=== PATIENT | female | born 1950 | race Caucasian/White ===

== ENCOUNTER → 2024-07-22 16:14 | Outpatient (REF) | payer MEDICARE, OTHER, SELFPAY | LOC: HWWDC 16:14 | PROVIDERS: ATTENDING PHYSICIAN Nurse Practitioner Family | DX: Z12.31 Encounter for screening mammogram for malignant neoplasm of breast (principal) | CPT/HCPCS: 77063; 77067 ==

== ENCOUNTER 2025-05-23 16:15 | Inpatient (IN) | payer MEDICARE, OTHER, SELFPAY ==
[2025-05-23 09:30] VITALS: BP 167/92
[2025-05-23 10:34] VITALS: BP 153/86
[2025-05-23 10:36] VITALS: BMI 29.5
[2025-05-23 10:53] LABS: INR 3.24; PT 32.9 Sec (11.4-14.6)
[2025-05-23 10:54] LABS: APTT 35.5 Sec (23.4-35.0)
[2025-05-23 11:00] VITALS: BP 147/76
[2025-05-23 11:04] LABS: ALT (SGPT) 14 U/L (0-35); AST (SGOT) 26 U/L (14-36); Albumin 4.4 g/dl (3.5-5.0); Alkaline Phosphatase 55 U/L (38-126); Blood Urea Nitrogen 19 mg/dl (7-17); Calcium 9.8 mg/dl (8.4-10.2); Carbon Dioxide 26 mmol/L (22-30); Chloride 107 mmol/L (98-107); Estimated Creatinine Clearance 70 ml/min; Glucose 147 mg/dl (70-99); Potassium 4.6 mmol/L (3.5-5.1); Sodium 140 mmol/L (135-145); Total Protein 6.7 g/dl (6.3-8.2); eGFR > 60.00
[2025-05-23 11:28] LABS: Hematocrit 41.7 % (37.0-47.0); Hemoglobin 14.1 g/dL (12.0-16.0); Mean Corp Hgb Conc. 33.8 g/dL (33.0-37.0); Mean Corpuscular Volume 89.5 fL (81.0-99.0); Platelet Count 190 10^3/uL (130-400); Red Cell Dist. Width 13.3 % (11.5-14.5)
--- NOTE | 2025-05-23 11:40 | ED.GENMED ---
History of Present Illness
<Angela Moreno PA-C - Last Filed: 05/24/25 07:04>
General
Chief Complaint: Rectal Bleeding
Source: patient
Exam Limitations: none
Time Seen by Provider: 05/23/25 10:40
Nursing documentation reviewed up to this point in time: agreed with
History of Present Illness
History of Present Illness:
SEE mdm
Past History
<Angela Moreno PA-C - Last Filed: 05/24/25 07:04>
Past History
ED Past Medical History: Cancer and CVA
ED Past Surgical History: Appendectomy, Cholecystectomy and Gynecological
Social History
Tobacco: Former smoker
Alcohol: Occasional
Drug: None
Living: with family
Family History
Family History: Unable to obtain
Phy Exam
<Angela Moreno PA-C - Last Filed: 05/24/25 07:04>
Physical Exam
Physical Exam:
SEE mdm
Course
<Angela Moreno PA-C - Last Filed: 05/24/25 07:04>
Orders/Labs/Results
Orders:
Orders
05/23/25 10:26
Cardiac Monitoring- Treatment ONCE
IV Insert/Care/Rem.- Treatment PRN
O2 Therapy [RESP] Urgent
Titrate/Wean O2 to maintain O2 sat greater than (%): 93
Special Instructions: MAINTAIN CONTINOUS O2 SATS > OR = 93%
Pulse Ox/spot Check [RESP] Urgent
Quantity: 1
Special Instructions: ON ROOM AIR
05/23/25 10:34
Type+Screen Urgent
Complete Blood Count/With Diff Urgent
05/23/25 10:35
Comprehensive Metabolic Panel Urgent
PTT Urgent
Prothrombin Time Urgent
05/23/25 11:35
CT Abd/pel W Iv And Oral Contr Urgent
Comment:
Reason For Exam: LLq pain, rectal bleed; h/o colostomy/reversal
Iohexol [Omnipaque] See Protocol PO NOW STA
05/23/25 11:38
0.9% Sodium Chloride 1000 ml [Nss] 1,000 ml IV BOLUS
05/23/25 12:09
Lactic Acid Urgent
05/23/25 Dinner
Clear Liquid
At Your Request: Full Participation
05/23/25 15:39
GASTROINTESTINAL CONSULT Routine
Consulting Provider: Dawit Eugene
Was physician already notified: Yes
Reason for consult: lower gi bleed
05/23/25 15:40
Admit/Transfer Patient As Directed
Co-Sign Provider:
Level of Care: Inpatient admission
Assign to:: Medical/Surgical
Physician / Group: archie martin
Diagnosis: gi bleed on coumadin, hx antiphospholipid syndrome
Reason for Hospitalization: gi bleed on coumadin, hx antiphospholipid syndrome
Expected length of stay greater than two midnights?: Yes
ELOS- Estimated Length of Stay in days: 4
I certify the patient meets the requirements for IP care: Yes
Code Status As Directed
Resuscitation Status: Do not resuscitate
Reached after discussion with pt or family/Healthcare POA: Yes
Decision communicated with: per pt
DNR Bracelet Application ONCE
05/23/25 15:42
PRN Pain Medication Management As Directed
May give lesser potent ordered pain med per pt: Yes
preference::
Protocol:: Medication orders for pain may be administered in a
manner that supports deferring to patient preference
when the pt is:
- Requesting an ordered lesser potent pain medication.
Least to most potent pain medications are defined
as: acetaminophen < NSAID < tramadol < opioids
(morphine, oxycodone, hydromorphone).
- Requesting a lesser dose of the same medication IF
ORDERED.
- Requesting a less intrusive route of administration
if both routes are prescribed by the provider (PO <
IV).
05/23/25 17:03
Activity As Directed
Activity Level: As Tolerated
Vital Signs As Directed
Frequency: Per unit guidelines
DX Deep Vein Thrombosis Video Routine
05/23/25 18:00
Loratadine [Claritin] 10 mg PO DAILY PRN allergies
05/23/25 22:00
Gabapentin [Neurontin] 300 mg PO HS
Rosuvastatin Calcium [Crestor] 5 mg PO DAILY@2200
05/24/25 06:00
Complete Blood Count/With Diff IN AM
Comprehensive Metabolic Panel IN AM
INR [Prothrombin Time] IN AM
05/24/25 08:00
Calcium Carbonate/Vitamin D3 [Oscal 500 + D] 500 mg PO DAILY
05/25/25 06:00
Complete Blood Count/With Diff IN AM
Comprehensive Metabolic Panel IN AM
05/26/25 06:00
Complete Blood Count/With Diff IN AM
Comprehensive Metabolic Panel IN AM
Abnormal Lab Results
05/23/25 05/23/25
10:34 10:35
WBC 20.6 H 10^3/uL
(4.8-10.8)
MPV 10.6 H fL
(7.4-10.4)
Absolute Lymphs (auto) 13.4 H 10^3/uL
(1.2-3.4)
Absolute Monos (auto) 0.7 H 10^3/uL
(0.1-0.6)
Neutrophils % 28.5 L %
(42.2-75.2)
Lymphocytes % 64.8 H %
(20.5-51.1)
PT 32.9 H Sec
(11.4-14.6)
APTT 35.5 H Sec
(23.4-35.0)
BUN 19 H mg/dl
(7-17)
Glucose 147 H mg/dl
(70-99)
05/23/25 10:34
05/23/25 10:35
Vital Signs
Initial and Last Documented VS:
Initial Vital Signs
Temp Pulse Resp BP Pulse Ox
36.8 C 78 16 167/92 95
05/23/25 09:30 05/23/25 09:30 05/23/25 09:30 05/23/25 09:30 05/23/25 09:30
Last Documented Vital Signs
Temp Pulse Resp BP Pulse Ox
36.5 C 66 18 138/68 98
05/23/25 23:00 05/23/25 23:00 05/23/25 23:00 05/23/25 23:00 05/23/25 23:00
<Nilsa Garcia, DO - Last Filed: 05/23/25 15:08>
Orders/Labs/Results
Orders:
Orders
05/23/25 10:26
Cardiac Monitoring- Treatment ONCE
IV Insert/Care/Rem.- Treatment PRN
O2 Therapy [RESP] Urgent
Titrate/Wean O2 to maintain O2 sat greater than (%): 93
Special Instructions: MAINTAIN CONTINOUS O2 SATS > OR = 93%
Pulse Ox/spot Check [RESP] Urgent
Quantity: 1
Special Instructions: ON ROOM AIR
05/23/25 10:34
Type+Screen Urgent
Complete Blood Count/With Diff Urgent
05/23/25 10:35
Comprehensive Metabolic Panel Urgent
PTT Urgent
Prothrombin Time Urgent
05/23/25 11:35
CT Abd/pel W Iv And Oral Contr Urgent
Comment:
Reason For Exam: LLq pain, rectal bleed; h/o colostomy/reversal
Iohexol [Omnipaque] See Protocol PO NOW STA
05/23/25 11:38
0.9% Sodium Chloride 1000 ml [Nss] 1,000 ml IV BOLUS
05/23/25 12:09
Lactic Acid Urgent
05/23/25 Dinner
Clear Liquid
At Your Request: Full Participation
05/23/25 15:39
GASTROINTESTINAL CONSULT Routine
Consulting Provider: Dawit Eugene
Was physician already notified: Yes
Reason for consult: lower gi bleed
05/23/25 15:40
Admit/Transfer Patient As Directed
Co-Sign Provider:
Level of Care: Inpatient admission
Assign to:: Medical/Surgical
Physician / Group: archie martin
Diagnosis: gi bleed on coumadin, hx antiphospholipid syndrome
Reason for Hospitalization: gi bleed on coumadin, hx antiphospholipid syndrome
Expected length of stay greater than two midnights?: Yes
ELOS- Estimated Length of Stay in days: 4
I certify the patient meets the requirements for IP care: Yes
Code Status As Directed
Resuscitation Status: Do not resuscitate
Reached after discussion with pt or family/Healthcare POA: Yes
Decision communicated with: per pt
DNR Bracelet Application ONCE
05/23/25 15:42
PRN Pain Medication Management As Directed
May give lesser potent ordered pain med per pt: Yes
preference::
Protocol:: Medication orders for pain may be administered in a
manner that supports deferring to patient preference
when the pt is:
- Requesting an ordered lesser potent pain medication.
Least to most potent pain medications are defined
as: acetaminophen < NSAID < tramadol < opioids
(morphine, oxycodone, hydromorphone).
- Requesting a lesser dose of the same medication IF
ORDERED.
- Requesting a less intrusive route of administration
if both routes are prescribed by the provider (PO <
IV).
05/23/25 17:03
Activity As Directed
Activity Level: As Tolerated
Vital Signs As Directed
Frequency: Per unit guidelines
DX Deep Vein Thrombosis Video Routine
05/23/25 18:00
Loratadine [Claritin] 10 mg PO DAILY PRN allergies
05/23/25 22:00
Gabapentin [Neurontin] 300 mg PO HS
Rosuvastatin Calcium [Crestor] 5 mg PO DAILY@2200
05/24/25 06:00
Complete Blood Count/With Diff IN AM
Comprehensive Metabolic Panel IN AM
INR [Prothrombin Time] IN AM
05/24/25 08:00
Calcium Carbonate/Vitamin D3 [Oscal 500 + D] 500 mg PO DAILY
05/25/25 06:00
Complete Blood Count/With Diff IN AM
Comprehensive Metabolic Panel IN AM
05/26/25 06:00
Complete Blood Count/With Diff IN AM
Comprehensive Metabolic Panel IN AM
Abnormal Lab Results
05/23/25 05/23/25
10:34 10:35
WBC 20.6 H 10^3/uL
(4.8-10.8)
MPV 10.6 H fL
(7.4-10.4)
Absolute Lymphs (auto) 13.4 H 10^3/uL
(1.2-3.4)
Absolute Monos (auto) 0.7 H 10^3/uL
(0.1-0.6)
Neutrophils % 28.5 L %
(42.2-75.2)
Lymphocytes % 64.8 H %
(20.5-51.1)
PT 32.9 H Sec
(11.4-14.6)
APTT 35.5 H Sec
(23.4-35.0)
BUN 19 H mg/dl
(7-17)
Glucose 147 H mg/dl
(70-99)
05/23/25 10:34
05/23/25 10:35
Vital Signs
Initial and Last Documented VS:
Initial Vital Signs
Temp Pulse Resp BP Pulse Ox
36.8 C 78 16 167/92 95
05/23/25 09:30 05/23/25 09:30 05/23/25 09:30 05/23/25 09:30 05/23/25 09:30
Last Documented Vital Signs
Temp Pulse Resp BP Pulse Ox
36.5 C 66 18 138/68 98
05/23/25 23:00 05/23/25 23:00 05/23/25 23:00 05/23/25 23:00 05/23/25 23:00
Deirdrelt;Angela Moreno PA-C - Last Filed: 05/24/25 07:04>
MDM/Problems Addressed
Differential Diagnosis Includes:
see MDM
MDM/Problems Addressed:
Note:
CHIEF COMPLAINT(S)
Bloody stool since approximately 8:30 AM.
HISTORY OF PRESENT ILLNESS
The patient is a [id number] female who presented with an episode of significant bloody stool that began around 8:30 AM today. The patient reports it was a sudden and painless occurrence, describing the volume as sufficient to turn the toilet bowl
entirely red. She has experienced four similar episodes, including one since arriving at this facility about 2 tsp of strictly blood (red). The patient has a history of antiphospholipid syndrome, managed with warfarin, with a recent International
Normalized Ratio (INR) of 3.4 as checked 3 days ago. She reports increased fatigue over the past week but denies experiencing lightheadedness. 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
artery, which led to her current anticoagulation regimen with warfarin. 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
before the COVID pandemic. There is a history of diverticulosis, but she denies prior episodes of diverticulitis. She does not report abdominal pain with the current episode.
PAST MEDICAL AND SURGICAL HISTORY
- Antiphospholipid syndrome
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
- History of a ruptured fistula between the uterus and fallopian tube leading to partial colectomy and temporary colostomy, later reversed
CHRONIC MEDICAL CONDITIONS SIGNIFICANTLY AFFECTING CARE
- Antiphospholipid syndrome
- Long-term anticoagulation therapy with warfarin
SOCIAL DETERMINANTS AFFECTING HEALTH
None mentioned related to healthcare access or other issues.
ALLERGIES
Allergy to intravenous contrast with colon surgery
MEDICATIONS
- Warfarin: 5.5 mg two days a week (Sunday and Sunday)
- Additionally, 6 mg on other days
REVIEW OF SYSTEMS
- Gastrointestinal: Sudden onset of significant bloody stool; denies abdominal pain.
- General: Increased fatigue over the past week.
- Neurological: No lightheadedness.
PHYSICAL EXAM
GENERAL: Alert , in no apparent distress
EYE: pupils equal and reactive
NECK: Supple
ENT: o/p clr, mmm.
CARDIAC: Regular rate and rhythm .
LUNGS: Clear breath sounds bilaterally, no acute respiratory distress, no wheezes/rales/rhonchi
ABDOMEN: Soft, mild left lower quadrant tenderness , no r/g, no cvat, normal bowel sounds
rectal: some skin tags ? warts
no oozing
NEUROLOGICAL: Alert and oriented, no focal neuro deficits
SKIN: Warm and dry, skin intact.
PSYCH: Normal and appropriate interaction.
Nursing notes reviewed and vital signs reviewed.
PLAN
1. Discussed the plan to perform a computed tomography (CT) scan of the abdomen and pelvis with oral contrast to identify the source of bleeding, as the bleeding episodes do not meet criteria for a bleeding scan.
2. Hospitalization expected due to bleeding and anticoagulation therapy with warfarin.
DIFFERENTIAL DIAGNOSIS
The Differential Diagnosis includes, in no particular order and is not limited to:
1. Gastrointestinal bleeding due to diverticulosis
2. Anticoagulation-related bleeding
3. Hemorrhoids
4. Inflammatory bowel disease
5. Colonic angiodysplasia
6. Colorectal carcinoma
7. Mesenteric ischemia
8. Arteriovenous malformation
9. Infectious colitis
10. Ischemic colitis
05/23/25 - 14:53
- Awaiting interpretation of the CT scan; hemoglobin is stable at 14, and lactic acid levels are normal.
- The patients white blood cell count danni to 193, with a noted increase from 175 and 180 in previous evaluations.
- The patient has chronic lymphocytic leukemia (CLL under monitoring since 2013, with periodic DEC prescriptions, and a follow-up scheduled with the oncologist in February. - SHE DOES NOT WANT THIS TO BE MADE KNOWN TO HER FAMILY, THAT THE CLL MAY BE
RETURING
<Angela Moreno PA-C - Last Filed: 05/24/25 07:04>
*Pulse Oximetry
SaO2: 94
Oxygen Mode of Delivery: Room air
Patient hypoxic: no (98)
*Critical Care Note
Total Time (30-74mins, 75-104mins- exclusive of procedures): Not Applicable
ED Attending Note
<Angela Moreno PA-C - Last Filed: 05/24/25 07:04>
-
Portions of this chart may have been created with voice recognition software.� Occasional wrong word or��sound alike� substitutions may have occurred due to the inherent limitations of voice recognition software.
<Nilsa Garcia DO - Last Filed: 05/23/25 15:08>
ED Attending Note
Patient seen and examined by attending physician: Yes
I performed the substantive portion of visit, reviewed & personally made and approve the management plan that is documented in note by myself or JANE.: Yes
I performed a history and physical exam of patient and discussed management with resident, I reviewed resident's note and agree with documented findings and plan of care.: Yes
ED Attending Note:
75-year-old female with a history of antiphospholipid syndrome on Coumadin, history of CLL presenting to the emergency department for concern of GI bleed. Patient reports about 4 episodes of abdominal to arrival, with additional episode here.
Denies any associated abdominal pain. Denies ever having issues with this while on Coumadin. Denies weakness or lightheadedness. Denies chest pain or difficulty breathing. Denies additional acute medical complaints.
Vital signs are stable. Patient initially seen and evaluated by physician library serials assistant with appropriate workup including laboratory analysis. Hemoglobin stable. On my assessment, no tenderness to abdomen, however given multiple episodes (made to
proceed with CT abdominal imaging. Pending CT imaging. No present hemodynamic instability, however due to coagulation status and persistent episodes, feel patient warrants admission for hemodynamic monitoring and hemoglobin trending. Of note,
patient's white blood cell count is elevated, which she notes has been uptrending, thought to be secondary to her CLL returning.
Discharge Plan
Departure
Patient Disposition: Admit
Date of Disposition: 05/23/25
Time of Disposition: 14:53
Admit to: Med/Surg
Presentation/result/management discussed w/ accepting MD/DO: Hospitalist
Condition: Fair
Covid-19: Not Applicable
Discharge Problem:
GI bleed, Anticoagulated
Interventions
Interventions:
*Risk Screen - Suicide Last Done: 05/23/25 09:30
*General Assessment Last Done: 05/23/25 10:37
*Neglect/Abuse Screening Last Done: 05/23/25 09:30
*ED COVID-19 Vaccine History Last Done: 05/23/25 10:38
*Nursing Disposition Last Done: 05/23/25 17:15
AZ-Rsajqy-Hfxccbraii Assessment Last Done: 05/23/25 10:39
ED- Cardiac Assessment Last Done: 05/23/25 10:39
ED- Pulmonary Assessment Last Done: 05/23/25 10:39
Discharge Date and Time
Discharge Date/Time: 05/23/25 17:15
[2025-05-23 12:03] LABS: Nucleated Red Blood Cells % 0 %
[2025-05-23] MEDS: OMNIPAQUE 50 ML PO (12:03)
[2025-05-23] MEDS: NSS 1000 IV (12:05)
[2025-05-23 13:01] VITALS: BP 168/83
--- NOTE | 2025-05-23 15:05 | HPS.HSE ---
Addendum entered and electronically signed by Del Kemp MD 05/23/25 16:47:
This is an addendum to H&P written by Zari Villaseñor on 05/23/2025. �Patient seen and examined independently with [employer]/FIRST OFFICER.
75-year-old female past medical history of antiphospholipid syndrome on Coumadin, CLL status post chemotherapy, diverticulitis complicated by fistula to ovary/uterus status post partial colectomy/colostomy, diabetes, Group B strep sepsis, presenting
with dark maroon clots with loose bowel movement. �No abdominal pain. �No fever or vomiting.
Vital signs unremarkable.
Labs show leukocytosis of 20. �PT of 32, PTT of 35. �INR 3.24.
CT abdomen pelvis pending.
Patient would likely lower GI bleeding. �Hold Coumadin. �Clear liquid diet. �GI consulted. �Her INR goal is between 2.5-3.5 normally.
Original Note:
Family Physician
-
Family Physician: Ksenia Campo MD
Chief Complaint
-
Blood in toilet bowl x 4 today
History of Present Illness
75-year-old female complaining of bloody stool began 830 this a.m. that was sudden but painless. She reports the entire toilet bowl turned dark red. She is on warfarin due to antiphospholipid syndrome with current INR 3.24
She reports approximately 1 tablespoon of dark red stool with brown formed stool while in the ER. The patient denies abdominal pain, cramping, nausea, vomiting, diarrhea, chest pain, palpitations, cough, shortness of breath, fever, chills. She
reports prior colonoscopy/endoscopy greater than [address] Art Cross at outpatient office in [place]
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
status post chemotherapy in past, former smoker
Medical History
Past Medical History
Past Medical History: Reports Other
Additional Past Medical History:
antiphospholipid syndrome
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
ruptured fistula between uterus/fallopian tube leading a partial colectomy and temporary colostomy later reversed
Group B/sepsis 2019 after colostomy
diverticulosis
DM 2
CLL Dx 2013 status post chemotherapy 2018
former smoker 30 years 1 pack a day quit 2013
Past Surgical History: Reports Other
Additional Past Surgical History:
ruptured fistula between uterus/fallopian tube leading a partial colectomy and temporary colostomy later reversed
Group B/sepsis 2019 after colostomy
Tonsillectomy
Hysterectomy
Ectopic with removal of right fallopian tube
Left knee surgery
Appendectomy right subcu port 01/14 removed 2022
Social History
Tobacco: Former Smoker (30-year 1 pack a day quit 2013)
Alcohol: Occasional
Living: With Family
Employment: Retired (Nurse)
Family History
Family History: Other (No family history of colon cancer)
Allergies / Home Medications
Allergies reflects when Allergies were last updated in [employer].
Home Medications with original date entered in [employer]
Allergy/Medication List:
Allergies
Allergy/AdvReac Type Severity Reaction Status Date / Time
tetracycline Allergy Unknown Verified 09/09/23 20:20
Home Medications
vitamin B complex 1 tab PO DAILY 02/26/23
calcium 600 mg (as carbonate)-vitamin D3 10 mcg (400 unit) tablet (Calcium 600 + D(3)) 1 tab PO DAILY 05/23/25
ferrous sulfate 325 mg (65 mg iron) tablet 325 mg PO DAILY 05/23/25
fluorouracil 5 % topical cream 1 applic topical DAILY PRN skin lesions 05/23/25
gabapentin 100 mg tablet 300 mg PO HS 05/23/25
loratadine 10 mg tablet 10 mg PO DAILY PRN allergies 05/23/25
metformin 500 mg tablet 500 mg PO BID 05/23/25
rosuvastatin 5 mg tablet 5 mg PO DAILY 05/23/25
warfarin 1 mg tablet 5.5 mg PO TUSA 05/23/25
warfarin 1 mg tablet 6 mg PO WE05/23/25
Review of Systems
-
History Source: Patient
A 12 point ROS was completed and negative except as noted: Yes
Constitutional: Denies Fever or Chills
EENT: Denies Sore Throat or Runny Nose
Respiratory: Denies Cough or Trouble Breathing
Cardiac: Denies Chest Pain, Diaphoresis, Palpitations or Syncope
Abdomen/GI: Reports Bloody Stools (Dark red 1 tablespoon x 5 episodes); Denies Abdominal Pain, Nausea, Vomiting, Diarrhea or Constipated
: Denies Dysuria or Frequency
Musculoskeletal: Denies Joint Pain or Edema
Skin: Denies Itching or Rash
Neurological: Denies Dizzy or Headache
Endocrine: Reports No Symptoms
Hematologic/Lymphatic: Reports No Symptoms
Psych: Reports Calm
Physical Exam
Vital Signs
Vital Signs
Temp Pulse Resp BP Pulse Ox
98 F 76 17 147/76 94
05/23/25 10:37 05/23/25 11:00 05/23/25 11:00 05/23/25 11:00 05/23/25 11:41
Physical Exam
General: No Pain, Fever or Chills
HEENT: NormoCephalic, Anicteric, Moist mucous membranes, PERRLA, Ambler Conjunctivae and No Ptosis
Respiratory: Clear; No Wheezes, Rales or Rhonchi
Cardiac: S1/S2 and Regular Rhythm; No Murmur, Rub, Gallop or Peripheral Edema
GI: Soft, Non Tender, Non Distended and Normal Bowel Sounds
Rectal: Deferred by Provider
Genito-urinary: Deferred by me
Musculoskeletal: No Clubbing, No Cyanosis and No Edema
Skin: Warm and Dry; No Rash
Neuro: AO x 3, No Motor Deficits, Cranial Nerves Intact and No Sensory Deficits; No Slurred Speech, Facial Droop, Tremors or Sedated
Psych: Calm
Laboratory Results
-
05/23/25 10:34
05/23/25 10:35
Laboratory Results
PT 32.9 Sec (11.4-14.6) H 05/23/25 10:35
INR 3.24 05/23/25 10:35
APTT 35.5 Sec (23.4-35.0) H 05/23/25 10:35
Lactic Acid 1.0 mmol/L (0.7-2.0) 05/23/25 12:09
Total Bilirubin 1.2 mg/dl (0.2-1.3) 05/23/25 10:35
AST 26 U/L (14-36) 05/23/25 10:35
ALT 14 U/L (0-35) 05/23/25 10:35
Alkaline Phosphatase 55 U/L (38-126) 05/23/25 10:35
Impression/Plan
-
Impression/plan:
Admit to MedSurg
#Lower GI bleed on Coumadin
#History diverticulosis
4 episodes painless bloody red bowel movement
Hgb 14.1 stable
-Consult GI
-HOLD coumadin
- clear liquid
- Follow CBC, BMP
#History antiphospholipid syndrome
-Hold current Coumadin due to GI bleed
Pt reports in between 2.5-3.5
#CLL Dx 2013 status post chemotherapy last chemo July 2018
WBC 20.6 states WBC was around 11 in February slowly going up but being monitored by oncology
Patient reports follows with [facility]
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
-Continue Crestor 5 mg at bedtime
# Hx ruptured fistula between uterus/fallopian tube leading a partial colectomy and temporary colostomy later reversed
#DM 2
BS 147
-Hold metformin 500 mg twice daily
#Neuropathy
Continue gabapentin 300 mg at bedtime
#Former smoker quit 2013
Former 31 pack a day
DVT prophylaxis
Hold current Coumadin due to elevated INR
SCDs
Full code
--- NOTE | 2025-05-23 16:58 | CM ---
CM reviewed chart and met with pt bedside in ED. Lives with her daughter in second story condo, full flight of steps to enter.
Independent in ADLs, personal care and ambulation at baseline, no assistive devices.
Hx VN in distant past, no hx SNF.
PCP: Ksenia Campo
Pharmacy: [facility] [address]
Anticipate discharge home, no needs. CM will continue to follow.
[2025-05-23 17:16] VITALS: BP 158/95; BMI 28.5
--- NOTE | 2025-05-23 17:35 | PTCARENOTE ---
Pt transferred from ED. Pt AAOX3, able to make needs known, VSS. Pt having blood BM. Pt oriented to unit, call grewal within reach. Will continue with current plan.
[2025-05-23] MEDS: CRESTOR 5 MG PO (21:22)
[2025-05-23] MEDS: NEURONTIN 300 MG PO (21:22)
[2025-05-23 22:05] LABS: Glucose - Point of Care 148 mg/dl (70-99)
[2025-05-23 23:00] VITALS: BP 138/68
--- NOTE | 2025-05-24 07:37 | CON.GI ---
Consultation
-
Date/Time Consultation Requested: 05/23/25 1pm
Date/Time Consultation Performed: 05/24/25 6:30 am
Requesting Provider: eliot
Performing Provider: micheline
Reason for Consultation: rectal bleeding
Medical History
Chief Complaint / HPI
Chief Complaint: rectal bleeding
History of Present Illness:
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
resulting in hysterectomy and partial colectomy with colostomy which was eventually reversed. She did have a preoperative colonoscopy at that point in 2017 which showed diverticular disease and polyps. She was told to repeat in 3 to 5 years but
has not had a repeat colonoscopy. She was admitted with rectal bleeding which she states happened several times and was not associated with dizziness or abdominal pain. She did have a leukocytosis as well and a CAT scan of the abdomen and pelvis
which showed some diverticular disease without diverticulitis. She did not have any other GI findings. Her INR is 3.24 on admission. She does not have any other GI history.
Past Medical History
Past Medical History: NIDDM and Other (Antiphospholipid syndrome, CLL, diverticulitis)
Past Surgical History: Bowel Resection and Gynecological (Partial colectomy with ostomy and reversal as well as total hysterectomy)
Social History
Tobacco: Former Smoker
Family History
Family History: Reviewed & Not Pertinent
Allergies / Home Medications
Allergy/AdvReac Type Severity Reaction Status Date / Time
tetracycline Allergy Unknown Verified 09/09/23 20:20
�Medication �Instructions �Recorded
vitamin B complex 1 tab PO DAILY 02/26/23
calcium 600 mg (as 1 tab PO DAILY 05/23/25
carbonate)-vitamin D3 10 mcg (400
unit) tablet (Calcium 600 + D(3))
ferrous sulfate 325 mg (65 mg 325 mg PO DAILY 05/23/25
iron) tablet
fluorouracil 5 % topical cream 1 applic topical DAILY PRN skin 05/23/25
lesions
gabapentin 100 mg tablet 300 mg PO HS 05/23/25
loratadine 10 mg tablet 10 mg PO DAILY PRN allergies 05/23/25
metformin 500 mg tablet 500 mg PO BID 05/23/25
rosuvastatin 5 mg tablet 5 mg PO DAILY 05/23/25
warfarin 1 mg tablet 5.5 mg PO TUSA 05/23/25
warfarin 1 mg tablet 6 mg PO SUMOWETHFR 05/23/25
Review of Systems
-
All other systems: A 12 pt ROS was Negative except as stated above in HPI
Vital Signs
Temp Pulse Resp BP Pulse Ox
97.7 F 66 18 138/68 98
05/23/25 23:00 05/23/25 23:00 05/23/25 23:00 05/23/25 23:00 05/23/25 23:00
Physical Exam
Exam
General: No Apparent Distress
HEENT: Anicteric
Cardiac: S1/S2
GI: Soft, Non Tender, Normal Bowel Sounds and Other (scar)
Skin: Warm
Neuro: Awake
Results
WBC 20.6 10^3/uL (4.8-10.8) H 05/23/25 10:34
Hgb 14.1 g/dL (12.0-16.0) 05/23/25 10:34
Hct 41.7 % (37.0-47.0) 05/23/25 10:34
MCV 89.5 fL (81.0-99.0) 05/23/25 10:34
Plt Count 190 10^3/uL (130-400) 05/23/25 10:34
Absolute Neuts (auto) 5.9 10^3/uL (1.4-6.5) 05/23/25 10:34
PT 32.9 Sec (11.4-14.6) H 05/23/25 10:35
INR 3.24 05/23/25 10:35
APTT 35.5 Sec (23.4-35.0) H 05/23/25 10:35
Sodium 140 mmol/L (135-145) 05/23/25 10:35
Potassium 4.6 mmol/L (3.5-5.1) 05/23/25 10:35
Chloride 107 mmol/L (98-107) 05/23/25 10:35
Carbon Dioxide 26 mmol/L (22-30) 05/23/25 10:35
BUN 19 mg/dl (7-17) H 05/23/25 10:35
Creatinine 0.7 mg/dL (0.6-1.0) 05/23/25 10:35
Calcium 9.8 mg/dl (8.4-10.2) 05/23/25 10:35
Total Bilirubin 1.2 mg/dl (0.2-1.3) 05/23/25 10:35
AST 26 U/L (14-36) 05/23/25 10:35
ALT 14 U/L (0-35) 05/23/25 10:35
Alkaline Phosphatase 55 U/L (38-126) 05/23/25 10:35
Assessment / Plan
-
This patient is a 75-year-old woman with a history of diverticulitis with fistula resulting in hysterectomy and partial colectomy with ostomy and reversal in 2019. She also has a history of colon polyps with her last colonoscopy being in 2017 as
well as a history of diabetes and antiphospholipid syndrome. She is on Coumadin and did come in with painless rectal bleeding which was mild. Her hemoglobin was stable on admission. For now would do the following:
1. Follow hemoglobin and INR
2. I did have a long discussion with Roxi who is a former ER nurse. She is well versed in her medical history and states that her INR will take some time to come down. She would prefer to have a colonoscopy which she knows she is overdue for as
an outpatient. She does work with Dr. Hester to bridge with Lovenox and has done this in the past. She does think that it will take more than a week for her INR to come down. I did offer to set her up for a colonoscopy in a week and a half as an
outpatient. She does prefer MiraLAX preparation. If she does remain stable in the hospital today and her hemoglobin is stable I do think this is a appropriate plan.
3. I did send my decorating supervisor her information and she will be scheduled. If however she does clinically change she can stay in the hospital and have it done there but she does not prefer.
4. She did have a leukocytosis on admission without any other symptoms or fever. This will be monitored. She does have a history of CLL.
Data Reviewed
-
Radiology: Report Reviewed by me
-
-
Thank you for consultation and allowing me to participate in the patient's care. Please call the [facility] physician during the after hours with any questions or concerns.
[2025-05-24] MEDS: OSCAL 500 + D 500 MG PO (07:38)
[2025-05-24 07:41] LABS: Glucose - Point of Care 148 mg/dl (70-99)
[2025-05-24 07:44] VITALS: BP 146/84
[2025-05-24 09:01] LABS: Hematocrit 40.8 % (37.0-47.0); Hemoglobin 13.9 g/dL (12.0-16.0); Mean Corp Hgb Conc. 34.1 g/dL (33.0-37.0); Mean Corpuscular Volume 91.3 fL (81.0-99.0); Platelet Count 235 10^3/uL (130-400); Red Cell Dist. Width 13.3 % (11.5-14.5)
--- NOTE | 2025-05-24 09:05 | W.DCSUMMARY ---
Discharge Summary
Discharge Data
Date of Admission: 05/23/25
Date of Discharge: 05/24/25
Total time spent discharging patient (in min): 50
-
Pending Results: Yes
Hospital Course
Initial presentation:
75-year-old female complaining of bloody stool began 830 am on 05/23/25, that was sudden but painless. She reports the entire toilet bowl turned dark red. She is on warfarin due to antiphospholipid syndrome with current INR 3.24 The patient denies
abdominal pain, cramping, nausea, vomiting, diarrhea, chest pain, palpitations, cough, shortness of breath, fever, chills. She reports prior colonoscopy/endoscopy greater than [address] Art Cross at outpatient office in [place]. At
day of discharge she continued to have some blood mixed in with stool, but insisted to go home.
Diagnosis prior to admit:
antiphospholipid syndrome
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
ruptured fistula between uterus/fallopian tube leading a partial colectomy and temporary colostomy later reversed
Group B/sepsis 2019 after colostomy
diverticulosis
DM 2
CLL Dx 2013 status post chemotherapy 2018
former smoker 30 years 1 pack a day quit 2013
Group B/sepsis 2019 after colostomy
Tonsillectomy
Hysterectomy
Ectopic with removal of right fallopian tube
Left knee surgery
Appendectomy right subcu port 01/14 removed 2022
Significant Social History
Retired (Nurse)
Hospital course by problem and Impression/plan:
1. Lower GI bleed on Coumadin complicated by History of diverticulosis
She had 4 episodes painless bloody red bowel movement but her Hgb at 14.1 has been stable. Consulted GI and the plan is for an outpatient colonoscopy when INR is lower. SHe will be bridged on lovenox (she has done this before. I had a detailed
discussion with the patient about the risks of going home today. 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 She has capacity to make this choice. Discharge was discussed with GI revenue cycle consultant.
The plan for discharge:
HOLD coumadin
Continue clear liquid (GI to advance after colonoscopy)
Follow outpatient CBC, BMP
Return to the ER immediately if bleeding does not stop or she has systemic symptoms like lightheadedness
GI to schedule outpatient colonoscopy
2. History antiphospholipid syndrome
Hold current Coumadin due to GI bleed (Pt reports in between 2.5-3.5)
Bridge with lovenox
3. CLL Dx 2013 status post chemotherapy last chemo July 2018
WBC 20.6 states WBC was around 11 in February slowly going up but being monitored by oncology
Patient reports follows with [facility]
4. 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
Continue Crestor 5 mg at bedtime
5. Hx ruptured fistula between uterus/fallopian tube leading a partial colectomy and temporary colostomy later reversed - stable
6. DM 2
Hold metformin 500 mg twice daily until diet returns to normal
7. Neuropathy - chronic
Continue gabapentin 300 mg at bedtime
DVT prophylaxis while in the hospital was SCDs given that the INR was elevated
She was Full code
Physical exam on day of discharge:
General: No Pain, Fever or Chills
HEENT: NormoCephalic, Anicteric, Moist mucous membranes, PERRLA, [place] Conjunctivae and No Ptosis
Respiratory: Clear; No Wheezes, Rales or Rhonchi
Cardiac: S1/S2 and Regular Rhythm; No Murmur, Rub, Gallop or Peripheral Edema
GI: Soft, Non Tender, Non Distended and Normal Bowel Sounds
Musculoskeletal: No Clubbing, No Cyanosis and No Edema
Skin: Warm and Dry; No Rash
Neuro: AO x 3,
Psych: Calm
Discharge Plan
-
Patient Disposition: Home (Routine Discharge)
Discharge Diagnosis/Procedures: rectal bleeding
Diet: Other diet
Additional Diets: Clear liquid
Activity: As tolerated
Driving Restrictions: As prior to admission
Bathing Restrictions: None
Referrals:
Ksenia Campo MD [Family Provider, Internal Medicine]
Prescriptions:
New
enoxaparin [Lovenox] 40 mg/0.4 mL syringe
40 mg SC Q12H Qty: 8 0RF
Rx Instructions:
inject twice daily as a coumadin bridge.
Continued
vitamin B complex Tablet
1 tab PO DAILY
gabapentin 100 mg Tablet
300 mg PO HS
fluorouracil 5 % cream
1 applic TOPICAL DAILY PRN (Reason: skin lesions)
ferrous sulfate 325 mg (65 mg iron) Tablet
325 mg PO DAILY
loratadine 10 mg Tablet
10 mg PO DAILY PRN (Reason: allergies)
rosuvastatin 5 mg tablet
5 mg PO DAILY
calcium carbonate-vitamin D3 [Calcium 600 + D(3)] 600 mg-10 mcg (400 unit) Tablet
1 tab PO DAILY
metformin 500 MG tablet
500 mg PO BID
Discontinued
warfarin 1 mg tablet
5.5 mg PO TUSA
warfarin 1 mg tablet
6 mg PO SUMOWETHFR
Discharge Orders:
Discharge Patient (As Directed); Ordered 05/24/25
Ordered By: Denilson Cloud
Discharge Date and Time
Print Language: SURINAMESE
[2025-05-24 09:29] LABS: ALT (SGPT) 13 U/L (0-35); AST (SGOT) 23 U/L (14-36); Albumin 4.4 g/dl (3.5-5.0); Alkaline Phosphatase 53 U/L (38-126); Blood Urea Nitrogen 14 mg/dl (7-17); Calcium 9.7 mg/dl (8.4-10.2); Carbon Dioxide 29 mmol/L (22-30); Chloride 102 mmol/L (98-107); Estimated Creatinine Clearance 68 ml/min; Glucose 151 mg/dl (70-99); Potassium 4.2 mmol/L (3.5-5.1); Sodium 137 mmol/L (135-145); Total Protein 6.7 g/dl (6.3-8.2); eGFR > 60.00
[2025-05-24 09:37] LABS: INR 2.26; PT 25.1 Sec (11.4-14.6)
[2025-05-24 10:33] LABS: Nucleated Red Blood Cells % 0 %
[2025-05-24 11:58] VITALS: BP 130/79
[2025-05-24 12:15] LABS: Glucose - Point of Care 135 mg/dl (70-99)
[2025-05-24 15:25] VITALS: BP 126/75
[2025-05-24 16:45] LABS: Glucose - Point of Care 111 mg/dl (70-99)
== END 2025-05-24 17:53 | disposition home or self-care (01) | DRG 378 ==
LOC: 4 WEST ACU 16:15
PROVIDERS: Clinical Nurse Specialist Family Health; Physician Assistant; ADMITTING PHYSICIAN Hospitalist; ATTENDING PHYSICIAN Internal Medicine; CONSULT PHYSICIAN Internal Medicine; EMERGENCY PHYSICIAN Student in an Organized Health Care Education/Training Program; FAMILY PHYSICIAN Internal Medicine
DX: K62.5 Hemorrhage of anus and rectum (principal); C91.10 Chronic lymphocytic leukemia of B-cell type not having achieved remission; D68.61 Antiphospholipid syndrome; E11.40 Type 2 diabetes mellitus with diabetic neuropathy, unspecified; Z66 Do not resuscitate; Z87.891 Personal history of nicotine dependence; Z90.49 Acquired absence of other specified parts of digestive tract; Z86.73 Personal history of transient ischemic attack (TIA), and cerebral infarction without residual deficits; Z79.899 Other long term (current) drug therapy; Z79.01 Long term (current) use of anticoagulants; Z92.21 Personal history of antineoplastic chemotherapy; Z90.710 Acquired absence of both cervix and uterus; Z88.1 Allergy status to other antibiotic agents; Z79.84 Long term (current) use of oral hypoglycemic drugs; Z86.0100 Personal history of colon polyps, unspecified; Z87.19 Personal history of other diseases of the digestive system
CPT/HCPCS: 74177; 80053; 82962; 83605; 85025; 85610; 85730; 86850; 86900; 86901; 94760; 96360; 96361; 99285; Q9967

== ENCOUNTER 2025-06-04 06:11 | Day surgery (SDC) | payer MEDICARE, OTHER, SELFPAY ==
[2025-06-04 08:19] LABS: Glucose - Point of Care 132 mg/dl (70-99)
== END 2025-06-04 10:15 | disposition home or self-care (01) ==
LOC: GI 06:11
PROVIDERS: ATTENDING PHYSICIAN Internal Medicine
DX: K92.1 Melena (principal); A63.0 Anogenital (venereal) warts; K57.30 Diverticulosis of large intestine without perforation or abscess without bleeding; K63.5 Polyp of colon; Z98.0 Intestinal bypass and anastomosis status
CPT/HCPCS: 45380; 82962; 88305

== ENCOUNTER → 2025-06-12 10:27 | Outpatient (REF) | payer MEDICARE, OTHER, SELFPAY | LOC: HWRAD 10:27 | PROVIDERS: ATTENDING PHYSICIAN Internal Medicine | DX: M85.80 Other specified disorders of bone density and structure, unspecified site (principal); Z78.0 Asymptomatic menopausal state | CPT/HCPCS: 77080 ==

== ENCOUNTER → 2025-07-23 08:51 | Outpatient (REF) | payer MEDICARE, OTHER, SELFPAY | LOC: HWWDC 08:51 | PROVIDERS: ATTENDING PHYSICIAN Internal Medicine | DX: Z12.31 Encounter for screening mammogram for malignant neoplasm of breast (principal) | CPT/HCPCS: 77063; 77067 ==